=== PATIENT | female | born 1950 | race Two or more races ===

== ENCOUNTER 2022-07-24 09:04 | Inpatient (IN) | payer OTHER ==
[~2022-07-24] VITALS: Ht 33 cm; Wt 68.0 kg
[~2022-07-24 09:04] MED LIST: CLONAZEPAM1 M1; CLONAZEPAM2 MG; KLONOPIN1 MG/TAB PO; NASAL MIST126 ML; OLANZAPINE-FLU1 EAC4; PROTONIX40 MG PO; PROZAC20 MG PO; RE CHLORDIAZEP1 EACH PO; TRAZODONE HCL100 MG; ZANTAC150 MG PO
[2022-07-26] MEDS ORDERED: VITAMIN B-12100 MCG (11:39)
[2022-07-26] MEDS ORDERED: VITAMIN D350 MCG (11:39)
[2022-07-26] MEDS ORDERED: FLONASE16 GM (11:39)
[2022-07-26] MEDS ORDERED: ATORVASTATIN CA20 MG (11:39)
[2022-07-26] MEDS ORDERED: FISH OIL 1,0001 EAC1 (11:39)
[2022-07-26] MEDS ORDERED: PHENTERMINE H37.5 M1 (11:39)
[2022-07-26] MEDS ORDERED: ZOLPIDEM TARTRA10 MG (11:39)
[2022-07-26] MEDS ORDERED: BENZONATATE100 MG (11:39)
[2022-07-26] MEDS ORDERED: LAMICTAL100 MG (11:40)
[2022-07-26] MEDS ORDERED: ATARAX25 MG (11:40)
[2022-07-26] MEDS ORDERED: VITAMIN B COMP1 EAC1 (11:40)
[2022-07-26] MEDS ORDERED: ESCITALOPRAM OX10 MG (11:40)
[2022-07-26] MEDS ORDERED: LITHIUM CARBON300 M1 (11:40)
[2022-07-26] MEDS ORDERED: OMEPRAZOLE20 MG (11:40)
[2022-07-26] MEDS ORDERED: RISPERIDONE1 MG (11:40)
== END 2022-07-30 22:30 | disposition home or self-care (01) | DRG 743 ==
LOC: O/R 07-26 08:32 → SURG 07-26 12:30 → SURH 07-26 19:49
PROVIDERS: ADMIT Specialist; ATTEND Specialist
PROC: 0UT24ZZ Resection of Bilateral Ovaries, Percutaneous Endoscopic Approach (ICD-10-PCS; 2022-07-26)
PROC: 0WBH4ZZ Excision of Retroperitoneum, Percutaneous Endoscopic Approach (ICD-10-PCS; 2022-07-26)
PROC: 0DNU0ZZ Release Omentum, Open Approach (ICD-10-PCS; 2022-07-26)
PROC: 0DNW0ZZ Release Peritoneum, Open Approach (ICD-10-PCS; 2022-07-26)
PROC: 0TN70ZZ Release Left Ureter, Open Approach (ICD-10-PCS; 2022-07-26)
PROC: 0TN60ZZ Release Right Ureter, Open Approach (ICD-10-PCS; 2022-07-26)
PROC: 0UT74ZZ Resection of Bilateral Fallopian Tubes, Percutaneous Endoscopic Approach (ICD-10-PCS; principal; 2022-07-26 12:45)
DX: D27.1 Benign neoplasm of left ovary (principal); N83.311 Acquired atrophy of right ovary; Z20.822 Contact with and (suspected) exposure to COVID-19; N73.6 Female pelvic peritoneal adhesions (postinfective)

== ENCOUNTER 2022-10-16 09:32 | Emergency (ER) | payer OTHER ==
[~2022-10-16] VITALS: Ht 154.9 cm; Wt 78.0 kg
[~2022-10-16 09:32] MED LIST changes: +ATARAX25 MG; +ATORVASTATIN CA20 MG; +BENZONATATE100 MG; +ESCITALOPRAM OX10 MG; +FISH OIL 1,0001 EAC1; +FLONASE16 GM; +LAMICTAL100 MG; +LITHIUM CARBON300 M1; +OMEPRAZOLE20 MG; +PHENTERMINE H37.5 M1; +RISPERIDONE1 MG; +VITAMIN B COMP1 EAC1; +VITAMIN B-12100 MCG; +VITAMIN D350 MCG; +ZOLPIDEM TARTRA10 MG
[2022-10-16] MEDS ORDERED: BENZONATATE200 M1 PO (14:02)
== END 2022-10-16 16:42 | disposition home or self-care (01) ==
LOC: ER 09:32
DX: M25.561 Pain in right knee (principal); R05.9 Cough, unspecified; Z88.0 Allergy status to penicillin

== ENCOUNTER 2023-06-26 10:30 | Outpatient (CLI) | payer OTHER ==
[~2023-06-26 10:30] MED LIST changes: +BENZONATATE200 M1 PO
== END 2023-06-26 10:38 | disposition home or self-care (01) ==
LOC: MAMO-SONO 10:30
PROVIDERS: ATTEND Obstetrics & Gynecology
DX: Z12.31 Encounter for screening mammogram for malignant neoplasm of breast (principal); N60.11 Diffuse cystic mastopathy of right breast; N60.12 Diffuse cystic mastopathy of left breast

== ENCOUNTER 2024-05-26 12:09 | Emergency (ER) | payer OTHER ==
[~2024-05-26] VITALS: Ht 154.9 cm; Wt 70.3 kg
[~2024-05-26 12:09] MED LIST changes: +ALPRAZOLAM ODT2 MG PO; +ATIVAN1 M1 PO; +BUSPIRONE HCL15 MG PO
== END 2024-05-26 16:19 ==
LOC: ER 12:09
DX: S09.8XXA Other specified injuries of head, initial encounter (principal); W19.XXXA Unspecified fall, initial encounter; Y93.89 Activity, other specified; Y92.89 Other specified places as the place of occurrence of the external cause; Y99.8 Other external cause status; Z88.0 Allergy status to penicillin; Z91.018 Allergy to other foods

== ENCOUNTER 2024-09-13 12:09 | Emergency (ER) | payer OTHER ==
[~2024-09-13] VITALS: Ht 157.5 cm; Wt 63.5 kg
[2024-09-13] MEDS ORDERED: TRAMADOL HCL 50 MG TABLET PO ONE (13:15)
[2024-09-13 13:49] LABS: HEMATOCRIT 40.2 % (36.0-45.00); HEMOGLOBIN 13.6 g/dL (12.0-15.00); MEAN CELL VOLUME 90.5 fL (80.00-100.00); MEAN CORPUSCULAR HEMOGLOBIN 30.6 pg (27.00-32.0); MEAN CORPUSCULAR HGB CONC 33.8 g/dl (32.0-36.0); PLATELET COUNT 214 K/uL (150-450); RED BLOOD COUNT 4.44 M/uL (4.00-6.00); RED CELL DISTRIBUTION WIDTH 14.4 % (11.5-14.5)
[2024-09-13 14:05] LABS: INR 1.13; PARTIAL THROMBOPLASTIN TIME 25.8 SECONDS (22.0-34.0); PROTHROMBIN TIME 12.2 SECONDS (9.0-11.5)
[2024-09-13 14:06] LABS: ALBUMIN 3.7 gm/dL (3.4-5.0); BILIRUBIN TOTAL 0.59 mg/dL (0.3-1.2); CALCIUM 9.4 mg/dL (8.5-10.1); CREATININE SERUM 1.35 mg/dL (0.55-1.02); GFR 38.44; GLOBULINA 3.8 G/DL (2.4-3.5); POTASSIUM 4.37 mEq/L (3.5-5.1); TOTAL PROTEIN 7.5 gm/dL (6.4-8.2)
[2024-09-13 16:44] LABS: PH,URINE 5.5 (5.0-8.0); URINE APPEARANCE Cloudy; URINE BILIRRUBIN Negative (NEGATIVE); URINE BLOOD Trace; URINE COLOR Dark Yellow; URINE GLUCOSE Negative (NEGATIVE); URINE LEUKOCYTE Trace; URINE NITRATE Negative; URINE PROTEIN Trace (NEGATIVE)
[2024-09-13 16:48] LABS: URINE BACTERIA 709.3 uL (0.0-1933); URINE CAST 9.61 uL (0.0-1.40); URINE EPITHELIAL CELLS 66.1 uL (0.0-38.8); URINE RBC 5.3 uL (0.0-20.8); URINE WBC 34.1 uL (0.0-23.2)
[2024-09-13 17:22] LABS: URINE KETONE 40 (NEGATIVE); URINE MUCUS MODERATE
== END 2024-09-13 17:51 | disposition home or self-care (01) ==
LOC: ER 12:09
PROVIDERS: General Practice
DX: S09.8XXA Other specified injuries of head, initial encounter (principal); S89.90XA Unspecified injury of unspecified lower leg, initial encounter; W18.30XA Fall on same level, unspecified, initial encounter; W19.XXXA Unspecified fall, initial encounter; Y93.89 Activity, other specified; Y92.89 Other specified places as the place of occurrence of the external cause; Y99.8 Other external cause status; M25.532 Pain in left wrist; Z88.0 Allergy status to penicillin; Z91.018 Allergy to other foods